=== PATIENT | female | born 1975 | race Caucasian/White ===

== ENCOUNTER 2019-04-18 16:00 | Inpatient (IN) ==
[2019-04-18 17:34] LABS: Basophils % 0.3 %; Eosinophils % 0.4 %; Hematocrit 42.3 % (35.3-44.9); Hemoglobin 14.2 g/dL (11.5-15.4); Immature Granulocytes % 0.3 % (0-4); Lymphocytes # 2.6 K/mcL (0.6-4.6); Lymphocytes % 25.5 %; Mean Corpuscular HGB Conc 33.6 g/dL (31.6-35.5); Mean Corpuscular Hemoglobin 29.6 pg (28.0-33.3); Mean Corpuscular Volume 88.1 fL (83.0-100.0); Mean Platelet Volume 9.9 fL (9.4-12.4); Monocytes # 0.5 K/mcL (0.0-1.3); Monocytes % 5.1 %; Neutrophils # 6.9 K/mcL (1.6-8.9); Platelet Count 300 K/mcL (140-400); Red Cell Distribution Width 12.6 % (11.5-14.5); Segmented Neutrophils % 68.4 %; White Blood Count 10.1 K/mcL (4.3-11.1)
[2019-04-18 17:53] LABS: Acetaminophen < 10 mcg/mL (10-20); BUN/Creatinine Ratio 13 (6-26); Blood Urea Nitrogen 9 mg/dL (6-20); Calcium 9.1 mg/dL (8.6-10.3); Carbon Dioxide 23 mEq/L (23-29); Chloride 105 mEq/L (98-107); Ethanol < 10 mg/dL (Less than 10); Glucose 93 mg/dL (70-105); Osmolality,Calculated 282 (280-300); Potassium 3.7 mEq/L (3.5-5.1); Salicylate < 2.5 mg/dL (15.0-30.0); Sodium 137 mEq/L (136-145); eGFR For African Americans > 60 (> 60); eGFR For Non-African Americans > 60 (> 60)
[2019-04-18 18:13] LABS: Bilirubin,Urine Negative (Negative); Blood,Urine Negative (Negative); Clarity,Urine Clear (Clear); Color,Urine Yellow (Yellow); Glucose,Urine (UA) Normal (Normal); Ketones,Urine Negative (Negative); Leukocyte Esterase,Urine Negative (Negative); Nitrite,Urine Negative (Negative); PH,Urine 6.5 pH Units (5.0-8.0); Protein,Urine Negative (Neg-Trace); Urobilinogen,Urine Normal (Normal)
[2019-04-18 18:29] LABS: Amphetamine Screen,Urine Negative ng/mL (Cutoff=1000); Barbiturate Screen,Urine Negative ng/mL (Cutoff=200); Benzodiazepines Screen,Urine Negative ng/mL (Cutoff=200); Cannabinoid Screen,Urine Negative ng/mL (Cutoff = 50); Cocaine Screen,Urine Negative ng/mL (Cutoff= 300); Opiate Screen,Urine Negative ng/mL (Cutoff=300); Phencyclidine Screen,Urine Negative ng/mL (Cutoff=25)
[2019-04-19] MEDS ORDERED: *HR* LORazepam 1 MG TABLET PO PRN (02:57)
[2019-04-19] MEDS ORDERED: *HR* LORazepam 2 MG/ML VIAL IM PRN (02:57)
[2019-04-19] MEDS ORDERED: Mag Hydrox/Al Hydrox/Simeth 30 ML UDC PO PRN (02:57)
[2019-04-19] MEDS ORDERED: Haloperidol Lactate 5 MG/ML VIAL IM PRN (02:57)
[2019-04-19] MEDS ORDERED: MOM Conc 10 ML UD.LIQ PO PRN (02:57)
[2019-04-19] MEDS ORDERED: hydrOXYzine pamoate 25 MG CAPSULE PO PRN (02:57)
[2019-04-19] MEDS ORDERED: Acetaminophen 325 MG TABLET PO PRN (02:57)
[2019-04-19] MEDS ORDERED: traZODone 50 MG TABLET PO PRN (02:57)
[2019-04-19] MEDS ORDERED: *HR* LORazepam 0.5 MG TABLET PO PRN (11:28)
[2019-04-19] MEDS ORDERED: Patient Taking Own Medication 1 EACH PO SCH (12:03)
[2019-04-19] MEDS: lamoTRIgine 100 MG TABLET PO SCH ×2 (12:19→20:20)
[2019-04-19] MEDS: ARIPiprazole 5 MG TABLET PO SCH (12:20)
[2019-04-19] MEDS ORDERED: JUNEL FE PO SCH (19:00)
[2019-04-19] MEDS: DESVENLAFAXINE 100 MG PO SCH (20:21)
[2019-04-20] MEDS ORDERED: Venlafaxine XR (24 HR) 150 MG CAP.ER.24H PO SCH (09:00)
[2019-04-20 09:04] VITALS: BP 137/83
[2019-04-20] MEDS: DESVENLAFAXINE 100 MG PO SCH (09:51)
[2019-04-20] MEDS: ARIPiprazole 5 MG TABLET PO SCH (09:51)
[2019-04-20] MEDS: lamoTRIgine 100 MG TABLET PO SCH (09:51)
== END 2019-04-20 10:15 | disposition home or self-care (01) | DRG 885 ==
LOC: EMEROOARM 16:00 → 1ANU 04-19 01:42 → SUATTDRO 04-19 01:42 → 1ANU 04-19 02:34
PROVIDERS: ADMIT Psychiatry & Neurology Forensic Psychiatry; ATTEND Psychiatry & Neurology Psychiatry